=== PATIENT | male | born 1950 | race Caucasian/White ===

== ENCOUNTER → 2016-12-05 | Outpatient (CLI) | payer OTHER | LOC: BMCIMAGING 08:06 | PROVIDERS: ATTEND Internal Medicine | DX: R91.8 Other nonspecific abnormal finding of lung field (principal) ==

== ENCOUNTER 2016-12-12 08:53 | Emergency (ER) | payer OTHER ==
--- NOTE | 2016-12-12 08:55 | EDPHY ---
HPI/HX/ROS/PE/MDM Narrative: CHIEF COMPLAINT: Left flank pain. HPI: The patient is a 66-year-old male who presents with sudden onset sharp left flank pain for 2 hours. The pain has been constant since then. He admits associated diaphoresis and tenesmus. He has had one bout of emesis. He denies provoking factors. He felt fine yesterday. EMS administered 10mg IV Morphine and 4mg IV Zofran en route. REVIEW OF SYSTEMS: Aside from elements discussed in the HPI, a comprehensive 10-point review of systems was reviewed and is negative. PMH: Hypercholesterolemia, 5 hernia repairs. SOCIAL HISTORY: . PHYSICAL EXAM: General: Patient is alert, in no acute distress. ENT: Eyes are normal to inspection. ENT inspection normal. Neck: Normal inspection. Full range of motion. Respiratory: No respiratory distress. Breath sounds normal bilaterally. Cardiovascular: Regular rate and rhythm. Strong peripheral pulses. Abdomen: Tenderness lateral to LLQ. There are no peritoneal signs. There are normal bowel sounds. Back: Normal to inspection. No tenderness to palpation. Skin: Normal color. No rash. Warm and dry. Extremities: Normal appearance. Full range of motion. Neuro: Oriented x3. Normal motor function. Normal sensory function. Portions of this note were transcribed by an ED scribe. I personally performed the history, physical exam, and medical decision making; and confirm the accuracy of the information in the transcribed note. ED Course: I met EMS on arrival and obtained a report from the license distributor. 66-year-old male presents with sudden-onset sharp left flank pain. This pain does not radiate. He denies alleviating or provoking factors. On exam he is tender lateral to his LLQ. An IV was established and labs ordered. 1L IV saline, 4mg IV Zofran, and 30mg IV Toradol administered. Abdominal CT ordered. 1004: Consulted with Dr. Orosco, radiology. He reports a 3mm distal left ureter stone. Please see Imaging section for official report. I discussed these results with the patient at this time. He is comfortable being discharged. He understands to follow up with a urologist and has been given a referral to Dr. Bueno. 1100: Upon being discharged the patient's pain returned so he was placed back in his room. 1mg IV Dilaudid and 4mg IV Zofran administered. 1356: Reassessed patient. He is feeling better. We discussed admission. We will re-check him in an hour and if his pain has returned, he will be admitted. MDM: This patient presents with abdominal pain and is found to have a 3 mm stone in the distal left ureter which is consistent with his symptoms. Patient shows no sign of urinary tract infection, sepsis, ruptured AAA, herniated disc or diverticulitis. He is appropriate for outpatient management. - Data Points Imaging Results: Imaging Impressions Abdomen/Pelvis CT 12/12/16 08:57 Impression: 1. 3 mm distal left ureteral stone with mild obstructive uropathy and possible forniceal rupture. 2. Coronary artery atherosclerosis. 3. Stable pulmonary nodules measuring up to 1 cm. Follow up chest CT is recommended in 6-12 months. 4. Sigmoid diverticulosis without evidence of diverticulitis. 5. Additional findings as above. Findings discussed with Mark Mansfield M.D. on December 12, 2016 at 10:04 a.m. Attention: This CT examination is specifically designed to evaluate patients who are clinically suspected of having acute obstructive uropathy. This examination does not use radiographic contrast, and as such, provides only a limited evaluation of the abdomen, pelvis and retroperitoneum. If there is further clinical suspicion for pathological conditions other than obstructive uropathy, a complete CT evaluation of the abdomen and pelvis utilizing intravenous and oral contrast should be considered. Laboratory Results: Laboratory Results 12/12/16 09:00 12/12/16 09:00 12/12/16 12/12/16 09:00 09:00 WBC 7.03 10^3/uL 10^3/uL (3.80-9.50) RBC 5.69 10^6/uL 10^6/uL (4.40-6.38) Hgb 15.6 g/dL g/dL (13.7-17.5) Hct 47.7 % % (40.0-51.0) MCV 83.8 fL fL (81.5-99.8) MCH 27.4 pg L pg (27.9-34.1) MCHC 32.7 g/dL g/dL (32.4-36.7) RDW 13.1 % % (11.5-15.2) Plt Count 281 10^3/uL 10^3/uL (150-400) MPV 10.9 fL fL (8.7-11.7) Neut % (Auto) 46.7 % % (39.3-74.2) Lymph % (Auto) 42.2 % % (15.0-45.0) [place] % (Auto) 7.7 % % (4.5-13.0) Eos % (Auto) 1.8 % % (0.6-7.6) Baso % (Auto) 1.3 % % (0.3-1.7) Nucleat RBC Rel Count 0.0 % % (0.0-0.2) Absolute Neuts (auto) 3.28 10^3/uL 10^3/uL (1.70-6.50) Absolute Lymphs (auto) 2.97 10^3/uL 10^3/uL (1.00-3.00) Absolute Monos (auto) 0.54 10^3/uL 10^3/uL (0.30-0.80) Absolute Eos (auto) 0.13 10^3/uL 10^3/uL (0.03-0.40) Absolute Basos (auto) 0.09 10^3/uL 10^3/uL (0.02-0.10) Absolute Nucleated RBC 0.00 10^3/uL 10^3/uL (0-0.01) Immature Gran % 0.3 % % (0.0-1.1) Immature Gran # 0.02 10^3/uL 10^3/uL (0.00-0.10) Sodium 140 mEq/L mEq/L (134-144) Potassium 4.3 mEq/L mEq/L (3.5-5.2) Chloride 107 mEq/L mEq/L (97-110) Carbon Dioxide 17 mEq/l L mEq/l (22-31) Anion Gap 16 mEq/L mEq/L (8-16) BUN 26 mg/dL H mg/dL (7-23) Creatinine 1.1 mg/dL mg/dL (0.7-1.3) Estimated GFR > 60 Glucose 155 mg/dL H mg/dL (70-100) Calcium 10.0 mg/dL mg/dL (8.5-10.4) Medications Given: Discontinued Medications Hydromorphone HCl (Dilaudid) 1 mg IVP EDNOW ONE Stop: 12/12/16 10:44 Last Admin: 12/12/16 10:53 Dose: 1 mg Hydromorphone HCl (Dilaudid) 0.5 mg IVP EDNOW ONE Stop: 12/12/16 12:06 Last Admin: 12/12/16 12:38 Dose: 0.5 mg Sodium Chloride (Ns) 1,000 mls @ 0 mls/hr IV ONCE ONE PRN Reason: Wide Open Stop: 12/12/16 08:57 Last Admin: 12/12/16 09:08 Dose: 1,000 mls Sodium Chloride (Ns) 1,000 mls @ 0 mls/hr IV ONCE ONE PRN Reason: Wide Open Stop: 12/12/16 10:44 Last Admin: 12/12/16 10:53 Dose: 1,000 mls Ibuprofen (Motrin) 600 mg PO EDNOW ONE Stop: 12/12/16 12:06 Last Admin: 12/12/16 12:15 Dose: 600 mg Ketorolac Tromethamine (Toradol) 30 mg IVP EDNOW ONE Stop: 12/12/16 08:57 Last Admin: 12/12/16 09:08 Dose: 30 mg Ondansetron HCl (Zofran) 4 mg IVP EDNOW ONE Stop: 12/12/16 09:15 Last Admin: 12/12/16 09:20 Dose: 4 mg Ondansetron HCl (Zofran) 4 mg IVP EDNOW ONE Stop: 12/12/16 10:55 Last Admin: 12/12/16 11:09 Dose: 4 mg General Initial Vital Signs: Initial Vital Signs Temperature (C) 36.8 C 12/12/16 08:53 Heart Rate 55 L 12/12/16 08:53 Respiratory Rate 18 12/12/16 08:53 Blood Pressure 162/94 H 12/12/16 08:53 O2 Sat (%) 98 12/12/16 08:53 O2 Delivery Mode Room Air O2 (L/minute) 2 Allergies/Adverse Reactions: No Known Allergies Allergy (Verified 12/12/16 10:30) Home Medications: Medication Instructions Recorded Atorvastatin Calcium 12/12/16 Ketorolac Tromethamine [Toradol] 10 mg PO Q6H #16 tab 12/12/16 Ondansetron Odt [Zofran Odt] 4 mg PO Q4PRN PRN #10 tab 12/12/16 oxyCODONE/APAP 5/325 [Percocet 1 - 2 tab PO Q4H PRN #10 tab 12/12/16 5/325] Departure - Departure Disposition: Home, Routine, Self-Care Clinical Impression: Kidney stone on left side Condition: Good Instructions: Kidney Stones (ED) Additional Instructions: Call Dr. Bueno, urology, today to set up a follow up appointment. Drink plenty of fluids. Return for any serious worsening of condition. Referrals: Adalberto Brink MD [Primary Care Provider] - As per Instructions Arsen Bueno MD [Medical Doctor] - As per Instructions Prescriptions: Ketorolac Tromethamine [Toradol] 10 mg PO Q6H #16 tab Ondansetron Odt [Zofran Odt] 4 mg PO Q4PRN PRN #10 tab PRN Reason: Nausea oxyCODONE/APAP 5/325 [Percocet 5/325] 1 - 2 tab PO Q4H PRN #10 tab PRN Reason: Pain, Severe Report Scribed for: Mark Mansfield Report Scribed by: Salas Coffey Date of Report: 12/12/16 Time of Report: 10:03
[2016-12-12] MEDS ORDERED: NS 1,000 ML IV ONE ×2 (08:56→10:43)
[2016-12-12] MEDS ORDERED: KETOROLAC 30 MG/1 ML SDV IVP ONE (08:56)
[2016-12-12 09:13] LABS: % IMMATURE GRANULYOCYTES 0.3 % (0.0-1.1); ABSOLUTE IMMATURE GRANULOCYTES 0.02 10^3/uL (0.00-0.10); ADD DIFF? NO; ADD MORPH? NO; ADD SCAN? NO; ATYPICAL LYMPHOCYTE FLAG 30 (0-99); FRAGMENT RBC FLAG 0 (0-99); HEMATOCRIT 47.7 % (40.0-51.0); HEMOGLOBIN 15.6 g/dL (13.7-17.5); LEFT SHIFT FLG 0 (0-99); LIPEMIA HEMOLYSIS FLAG 80 (0-99); MEAN CELL HEMOGLOBIN 27.4 pg (27.9-34.1); MEAN CELL HEMOGLOBIN CONCENTR. 32.7 g/dL (32.4-36.7); MEAN CELL VOLUME 83.8 fL (81.5-99.8); MEAN PLATELET VOLUME 10.9 fL (8.7-11.7); PLATELET CLUMPS FLAG 0 (0-99); PLATELET COUNT 281 10^3/uL (150-400); RED BLOOD CELL COUNT 5.69 10^6/uL (4.40-6.38); RED CELL DISTRIBUTION WIDTH 13.1 % (11.5-15.2)
[2016-12-12] MEDS ORDERED: ONDANSETRON 4 MG/2 ML VIAL IVP ONE ×2 (09:14→10:54)
[2016-12-12 09:26] LABS: ANION GAP 16 mEq/L (8-16); CARBON DIOXIDE 17 mEq/l (22-31); CHLORIDE 107 mEq/L (97-110); CREATININE 1.1 mg/dL (0.7-1.3); GLOMERULAR FILTRATION RATE > 60; GLUCOSE 155 mg/dL (70-100); POTASSIUM 4.3 mEq/L (3.5-5.2); SODIUM 140 mEq/L (134-144)
[2016-12-12] MEDS ORDERED: HYDROmorphONE/DILAUDID 1 MG/ML SYR IVP ONE ×2 (10:43→12:05)
[2016-12-12] MEDS ORDERED: HYDROmorphONE/DILAUDID 1 MG/ML SYR ONE (10:48)
[2016-12-12] MEDS ORDERED: ONDANSETRON 4 MG/2 ML VIAL ONE (10:58)
[2016-12-12] MEDS ORDERED: IBUPROFEN 600 MG TAB PO ONE (12:05)
[2016-12-12 12:07] VITALS: RESP 18
[2016-12-12 13:12] VITALS: O2SAT 95
[2016-12-12] MEDS ORDERED: OXYCODONE/APAP 5/325 TAB PO ONE (13:58)
[2016-12-12 15:08] VITALS: BP 135/85; PULSE 55; TEMP 98.2
== END 2016-12-12 15:12 | disposition home or self-care (01) ==
LOC: EDUNIT#
DX: N20.0 Calculus of kidney (principal)
CPT/HCPCS: 96374; J1170; J1885; J2405

== ENCOUNTER → 2017-06-26 | Outpatient (CLI) | payer OTHER | LOC: FIMAGING 07:49 | PROVIDERS: ATTEND Internal Medicine | DX: R91.1 Solitary pulmonary nodule (principal) ==

== ENCOUNTER → 2018-01-21 | Outpatient (CLI) | payer OTHER | LOC: FIMAGING 14:19 | PROVIDERS: ATTEND Internal Medicine | DX: R91.1 Solitary pulmonary nodule (principal); I25.10 Atherosclerotic heart disease of native coronary artery without angina pectoris ==

== ENCOUNTER 2018-08-13 05:11 | Inpatient (IN) | payer OTHER ==
--- NOTE | 2018-08-13 05:20 | EDPHY ---
H & P Stated Complaint: worsening L hip pain, similar to fluid on R hip,orthopedist considering MRI Time Seen by Provider: 08/13/18 05:20 HPI/ROS: HPI CHIEF COMPLAINT: Intractable left hip pain getting worse. HISTORY OF PRESENT ILLNESS: Patient is a very pleasant 68-year-old male, otherwise healthy does have a history of hyperlipidemia presents to the emergency room with left hip pain. Patient has been suffering from left hip pain for the past 2 weeks. Progressively getting worse over the past week. He has been using crutches to get around. He is having increasing pain. He did see his orthopedic surgeon Dr. Mg. He had x-rays of his left hip and back and they were unsure exactly what causing his hip pain. He also had a cortisone injection in his hip he states that gave him no relief this was last week. Additionally he reports the fluid drawn off and fluid drawn off he did feel better. He is unsure of the fluid results. Patient reports to me he really cannot bear any weight. The patient denies fever, denies trauma to his left hip her back. The pain is rather intense 9/10 lateral left hip pain. Worse when he goes to walk a ranges left hip. Denies any fever, skin discoloration. Denies trauma. Patient's orthopedic surgeon is Dr. Mg. Past Medical History: Hyperlipidemia Past Surgical History: Right hip replacement. Social History: Denies drugs alcohol tobacco. Family History: Noncontributory ROS REVIEW OF SYSTEMS: 10 Systems were reviewed and negative with the exception of the elements mentioned in the history of present illness. Exam Constitutional triage nursing summary reviewed, vital signs reviewed, awake/ alert. Eyes normal conjunctivae and sclera, EOMI, PERRLA. HENT normal inspection, atraumatic, moist mucus membranes, no epistaxis, neck supple/ no meningismus, no raccoon eyes. Respiratory clear to auscultation bilaterally, normal breath sounds, no respiratory distress, no wheezing. Cardiovascular rate normal, regular rhythm, no murmur, no edema, distal pulses normal. Gastrointestinal soft, non-tender, no rebound, no guarding, normal bowel sounds, no distension, no pulsatile mass. Genitourinary no CVA tenderness. Musculoskeletal left lower extremity neurovascular intact with good distal pulse, good cap refill, warm extremity, no skin discoloration, tender palpation over the left lateral hip with deep palpation, with range of motion of the left hip including flexion, extension he has discomfort. no midline vertebral tenderness, full range of motion, no calf swelling, no tenderness of extremities, no meningismus, good pulses, neurovascularly intact. Skin pink, warm, & dry, no rash, skin atraumatic. Neurologic awake, alert and oriented x 3, AAOx3, moves all 4 extremities equally, motor intact, sensory intact, CN II-XII intact, normal cerebellar, normal vision, normal speech. Psychiatric normal mood/affect. Heme/Lymph/Immune no lymphadenopathy. Differential Diagnosis: Includes but is not limited to in a particular order left hip sprain, left hip contusion, left hip osteoarthritis, septic hip. Medical Decision Making: Plan for this patient IV establishment with IV pain control 1 mg IV Dilaudid for pain, Zofran 4 mg for nausea, basic blood work, x- ray left hip, MRI left hip. Re-evaluate. Re-evaluation: 6:19 a.m. patient is given 1 mg IV Dilaudid and pain improved. Blood work pending. X-ray performed a left hip interpreted by myself significant osteoarthritis and joint space narrowing. No fracture. MRI ordered of the patient's left hip. 0649: Spoke with Dr. Mg's PA Juan Francisco Simms, will talk to Dr. Mg. And either Dr. Mg or Dr. Wilde will come and see him. Plan for admission to the hospitalist service Dr. Vaughan. Patient in MRI at this time 6:52 a.m.. Patient to be admitted to the medicine service for pain control, Orthopedics to see the patient Source: Patient - Personal History Current Tetanus/Diphtheria Vaccine: Yes Current Tetanus Diphtheria and Acellular Pertussis (TDAP): Yes - Medical/Surgical History Hx Asthma: No Hx Chronic Respiratory Disease: No Hx Diabetes: No Hx Cardiac Disease: No Hx Renal Disease: No Hx Cirrhosis: No Hx Alcoholism: No Hx HIV/AIDS: No Hx Splenectomy or Spleen Trauma: No Other PMH: HLP, hernia surgery x5 - Social History Smoking Status: Former smoker Constitutional: Initial Vital Signs Temperature (C) 36.3 C 08/13/18 05:15 Heart Rate 63 08/13/18 05:15 Respiratory Rate 20 08/13/18 05:15 Blood Pressure 126/102 H 08/13/18 05:15 O2 Sat (%) 98 08/13/18 05:15 O2 (L/minute) 2 Allergies/Adverse Reactions: No Known Allergies Allergy (Verified 08/13/18 05:14) Home Medications: Medication Instructions Recorded Atorvastatin Calcium [Lipitor 20 20 mg PO DAILY 12/12/16 mg (*)] Ascorbic Acid [Vitamin C 500 mg 500 mg PO DAILY 08/13/18 (*)] Cholecalciferol Vit D3 [Vitamin D3 1,000 units PO DAILY 08/13/18 (*)] Cyanocobalamin [Vitamin B12 (*)] 1,000 mcg PO DAILY 08/13/18 Glucosamine/Chondroitin 1 each PO DAILY 08/13/18 [Glucosamine/Chondroitin (*)] Naproxen Sodium [Aleve 220 MG (*)] 220 mg PO DAILY 08/13/18 [place]-3 Fatty Acids [Fish Oil 1000 1,000 mg PO DAILY 08/13/18 mg (*)] celeCOXIB [Celebrex (*)] 200 mg PO HS 08/13/18 Medical Decision Making - Data Points Laboratory Results: Laboratory Results 08/13/18 05:51 08/13/18 05:51 Medications Given: Hydrocodone Bitart/Acetaminophen ([place] 5/325) 1 - 2 tab PO Q4HRS PRN PRN Reason: Pain, Moderate Able to Take PO Stop: 08/23/18 06:39 Last Admin: 08/13/18 20:26 Dose: 1 tab Sodium Chloride (Ns) 1,000 mls @ 75 mls/hr IV CONT RAMIRO Stop: 02/09/19 06:44 Last Admin: 08/13/18 08:52 Dose: 1,000 mls Lorazepam (Ativan) 0.5 - 1 mg PO Q8HRS PRN PRN Reason: Anxiety, Able to Take PO Stop: 02/09/19 06:39 Last Admin: 08/13/18 22:08 Dose: 1 mg Discontinued Medications Fentanyl (Sublimaze) 50 mcg IVP EDNOW ONE Stop: 08/13/18 06:27 Last Admin: 08/13/18 06:41 Dose: 50 mcg Hydromorphone HCl (Dilaudid) 1 mg IVP EDNOW ONE Stop: 08/13/18 05:45 Last Admin: 08/13/18 06:09 Dose: 1 mg Sodium Chloride (Ns) 1,000 mls @ 0 mls/hr IV ONCE ONE PRN Reason: Wide Open Stop: 08/13/18 05:45 Last Admin: 08/13/18 06:09 Dose: 1,000 mls Ondansetron HCl (Zofran) 4 mg IVP EDNOW ONE Stop: 08/13/18 05:45 Last Admin: 08/13/18 06:09 Dose: 4 mg Departure - Departure Disposition: [facility] Clinical Impression: Left hip pain Condition: Good
[2018-08-13] MEDS ORDERED: NS 1,000 ML IV ONE (05:44)
[2018-08-13] MEDS ORDERED: ONDANSETRON 4 MG/2 ML VIAL IVP ONE (05:44)
[2018-08-13] MEDS ORDERED: HYDROmorphONE/DILAUDID 2 MG/ML INJ IVP ONE (05:44)
[2018-08-13] MEDS ORDERED: GADOBUTROL 10 ML VIAL IVP ONE (06:06)
[2018-08-13 06:18] LABS: PLATELET COUNT 268 10^3/uL (150-400)
[2018-08-13] MEDS ORDERED: fentaNYL 100 MCG/2 ML INJ IVP ONE (06:26)
[2018-08-13] MEDS ORDERED: LORazepam 2 MG/ML INJ IVP PRN (06:40)
[2018-08-13] MEDS ORDERED: ACETAMINOPHEN 325 MG TAB PO PRN (06:40)
[2018-08-13] MEDS ORDERED: ONDANSETRON DISINTEGRATING 4 MG TAB PO PRN (06:40)
[2018-08-13] MEDS ORDERED: ONDANSETRON 4 MG/2 ML VIAL IVP PRN (06:40)
[2018-08-13] MEDS: NS 1,000 ML IV SCH (08:52)
[2018-08-13] MEDS: HYDROCODONE/APAP 5/325 TAB PO PRN ×3 (11:01→20:26)
--- NOTE | 2018-08-13 15:54 | GCON ---
ORTHOPEDIC CONSULTATION DATE OF CONSULTATION: 08/13/2018 CHIEF COMPLAINT: Left lower extremity pain. HISTORY OF PRESENT ILLNESS: This is a patient with known left hip osteoarthritis and patient of Dr. Mg and . He has known left hip osteoarthritis, had an intra-articular steroid inject ion performed on August 04, along with fluid aspiration. States that he got approximately 12 hour s of pain relief after that; however, pain has been worsening since that time. He states the last we ek and a half, he has been living with 18 hours of 7 or greater out of 10 pain. He had difficulty we ightbearing yesterday and presented to the emergency department. He denies fevers, chills, change in bowel or bladder habits, including controlling or initiating. He states the pain is located mostly in the posterior lateral buttock, radiates down the all aspects of the thigh, posterior lateral and t o a lesser degree in the quadriceps, radiates down the lateral aspect of the leg, which is associated with some numbness; however, no symptoms radiate past the ankle into the foot. He states the sympto ms feel much different compared to the symptoms that led to his right hip replacement. Currently, he has been getting pain medication and feels "great." REVIEW OF SYSTEMS: 10-point review of systems is negative, except for what is noted in the HPI. PAST MEDICAL HISTORY: Hyperlipidemia. PAST SURGICAL HISTORY: Right hip replacement. SOCIAL HISTORY: Denies drugs, alcohol, or tobacco. FAMILY HISTORY: Noncontributory. LABORATORY/IMAGING: Inflammatory blood work, including a CBC, ESR, and CRP are not concerning for in fection. MRI and x-rays of the hip reveal known osteoarthritis. ASSESSMENT/PLAN: 68-year-old male with intractable left lower extremity pain, not currently concerni ng for septic arthritis of the left hip or cauda equina; however, patient's left hip osteoarthritis w ould be unusual for it to produce as much pain as the patient is having. Recommend an MRI of the pat ient's lumbar spine and consider further intervention afterwards. The patient and family members und erstand and agree with treatment plan. Questions were answered. /[id number]/MODL
--- NOTE | 2018-08-13 17:43 | PDGENHP ---
History and Physical - Chief Complaint hip and back pain - History of Present Illness 68 year old male with pmh of OA and HLD who presented to the Er with complaints of acute worsening of his left hip. he states that he had a hip joint injection on August 04 which helped only briefly. Then his pain acutely worsened. Since that time he has had severe 8/10 pain in his left hip which radiates down the back of his leg. He does not have any loss of bowel or bladder, and denied any numbness or saddle anesthesia. He takes aleve which has not really helped at all. The pain is present all the time and is not worse with any weight bearing. History Information - Allergies/Home Medication List Allergies/Adverse Reactions: No Known Allergies Allergy (Verified 08/13/18 05:14) Home Medications: Atorvastatin Calcium [Lipitor 20 mg (*)] 20 mg PO DAILY 12/12/16 [Last Taken 08/18] Ascorbic Acid [Vitamin C 500 mg (*)] 500 mg PO DAILY 08/13/18 [Last Taken Unknown] Cholecalciferol Vit D3 [Vitamin D3 (*)] 1,000 units PO DAILY 08/13/18 [Last Taken Unknown] Cyanocobalamin [Vitamin B12 (*)] 1,000 mcg PO DAILY 08/13/18 [Last Taken Unknown ] Glucosamine/Chondroitin [Glucosamine/Chondroitin (*)] 1 each PO DAILY 08/13/18 [ Last Taken Unknown] Naproxen Sodium [Aleve 220 MG (*)] 220 mg PO DAILY 08/13/18 [Last Taken 08/12/18 ] [place]-3 Fatty Acids [Fish Oil 1000 mg (*)] 1,000 mg PO DAILY 08/13/18 [Last Taken Unknown] celeCOXIB [Celebrex (*)] 200 mg PO HS 08/13/18 [Last Taken 08/12/18] I have personally reviewed and updated: family history, medical history, social history, surgical history (hld) - Past Medical History hyperlipidemia - Surgical History Additional surgical history: right hip arthroplasty - Family History Positive for: non-pertinent - Social History Smoking Status: Former smoker Drug Use: Marijuana Review of Systems Review of Systems: ROS: 10pt was reviewed & negative except for what was stated in HPI & below Physical Exam Physical Exam: Temp Pulse Resp BP Pulse Ox 37.3 C 56 L 16 133/80 H 97 08/13/18 15:43 08/13/18 15:43 08/13/18 15:43 08/13/18 15:43 08/13/18 15:43 O2 (L/minute) 2 Constitutional: no apparent distress, appears nourished, not in pain Eyes: PERRL, anicteric sclera, EOMI Ears, Nose, Mouth, Throat: moist mucous membranes, hearing normal, ears appear normal, no oral mucosal ulcers Cardiovascular: regular rate and rhythym, no murmur, rub, or gallop, No edema Respiratory: no respiratory distress, no rales or rhonchi, clear to auscultation Gastrointestinal: normoactive bowel sounds, soft, non-tender abdomen, no palpable masses Genitourinary: no bladder fullness, no bladder tenderness Skin: warm, normal color, no rashes or abrasions, no fluctuance, no induration, No mottled Musculoskeletal: full muscle strength, no muscle tenderness, normal joint ROM, no joint effusions Neurologic: AAOx3, CN II-XII Intact Psychiatric: interacting appropriately, not anxious, not encephalopathic, thought process linear Lymph, Heme, Immunologic: no cervical LAD, no supraclavicular LAD Lab Data & Imaging Review 08/13/18 05:51 08/13/18 05:51 WBC 9.17 10^3/uL (3.80-9.50) 08/13/18 05:51 RBC 5.81 10^6/uL (4.40-6.38) 08/13/18 05:51 Hgb 15.9 g/dL (13.7-17.5) 08/13/18 05:51 Hct 47.5 % (40.0-51.0) 08/13/18 05:51 MCV 81.8 fL (81.5-99.8) 08/13/18 05:51 MCH 27.4 pg (27.9-34.1) L 08/13/18 05:51 MCHC 33.5 g/dL (32.4-36.7) 08/13/18 05:51 RDW 12.9 % (11.5-15.2) 08/13/18 05:51 Plt Count 268 10^3/uL (150-400) 08/13/18 05:51 MPV 10.2 fL (8.7-11.7) 08/13/18 05:51 Neut % (Auto) 60.1 % (39.3-74.2) 08/13/18 05:51 Lymph % (Auto) 28.9 % (15.0-45.0) 08/13/18 05:51 [place] % (Auto) 8.6 % (4.5-13.0) 08/13/18 05:51 Eos % (Auto) 1.6 % (0.6-7.6) 08/13/18 05:51 Baso % (Auto) 0.5 % (0.3-1.7) 08/13/18 05:51 Nucleat RBC Rel Count 0.0 % (0.0-0.2) 08/13/18 05:51 Absolute Neuts (auto) 5.50 10^3/uL (1.70-6.50) 08/13/18 05:51 Absolute Lymphs (auto) 2.65 10^3/uL (1.00-3.00) 08/13/18 05:51 Absolute Monos (auto) 0.79 10^3/uL (0.30-0.80) 08/13/18 05:51 Absolute Eos (auto) 0.15 10^3/uL (0.03-0.40) 08/13/18 05:51 Absolute Basos (auto) 0.05 10^3/uL (0.02-0.10) 08/13/18 05:51 Absolute Nucleated RBC 0.00 10^3/uL (0-0.01) 08/13/18 05:51 Immature Gran % 0.3 % (0.0-1.1) 08/13/18 05:51 Immature Gran # 0.03 10^3/uL (0.00-0.10) 08/13/18 05:51 ESR 24 MM/HR (0-20) H 08/13/18 05:51 VBG Lactic Acid 1.4 mmol/L (0.7-2.1) 08/13/18 06:15 Sodium 137 mEq/L (135-145) 08/13/18 05:51 Potassium 4.1 mEq/L (3.5-5.2) 08/13/18 05:51 Chloride 109 mEq/L (97-110) 08/13/18 05:51 Carbon Dioxide 21 mEq/l (22-31) L 08/13/18 05:51 Anion Gap 7 mEq/L (6-14) 08/13/18 05:51 BUN 24 mg/dL (7-23) H 08/13/18 05:51 Creatinine 0.8 mg/dL (0.7-1.3) 08/13/18 05:51 Estimated GFR > 60 08/13/18 05:51 Glucose 110 mg/dL (70-100) H 08/13/18 05:51 Calcium 9.9 mg/dL (8.5-10.4) 08/13/18 05:51 C-Reactive Protein < 5.0 mg/L (<10.0) 08/13/18 05:51 Visualized and Interpreted imaging results: Yes Assessment & Plan Assessment: Left hip pain (Acute)- orthopedic surgery has been consulted. MRI reviewed and I find no evidence of infection but he does have a labral tear, along with arthritis. his labs are unremarkable and exam and vitals are all reasuring. -ortho to see -pain control -NPO until cleared -IVNS HLD- can continue statin while here. PPX- SCDs, heparin if no surgery Fluids- NS Lytes- WNL Nutrition- NPO at [place] [facility]- Full Dispo- observation for acute left hip pain
[2018-08-13] MEDS: LORazepam 0.5 MG TAB PO PRN (22:08)
[2018-08-14] MEDS: HYDROCODONE/APAP 5/325 TAB PO PRN ×3 (03:37→21:09)
[2018-08-14] MEDS: NS 1,000 ML IV SCH (05:38)
--- NOTE | 2018-08-14 06:24 | GCON ---
I was asked to see and evaluated this patient by my colleague, Dr. Praveen Mg. This is actually a patient who is well known to me for a previous visit, we thought at the time was likely left hip pain. He has been referred to my clinic from Dr. Troy Wilde for consideration of an injection, but his pain was refractory to that. He presented to the hospital yesterday with severe left leg pain. PHYSICAL EXAMINATION: On my physical exam, when I 1st spoke to the patient this morning, he stated "my left hip feels a lot like my right hip did before I had the hip replacement", however, he also describes a unique pain which radiates down the right leg, posterolateral thigh into the anterolateral ren which seems neurological or radicular in nature. On physical exam this morning, his tibialis anterior was 4- out of 5 in the left , EHL was also 4- out of 5. Straight leg raise was markedly positive. At the time, I made recommendations for lumbar spine MRI which has since been obtained. The MRI demonstrates a cephalad migration of an L4-5 herniated nucleus pulposis on the patient's left side. There is no evidence of instability. IMPRESSION: L4-5 herniated nucleus pulposis. ASSESSMENT AND PLAN: From my perspective, given the substantial weakness with this patient, I do think it is reasonable for operative interventions. I did however go over all management possibilities including all conservative measures , watching and waiting, medical management, epidural injection, etc. I also spoke to the patient's lefabun-ns-gys who is a neurosurgeon in [place]. The patient, the patient's [id number] as well as his all agree that operative management is likely the best scenario moving forward, especially given the rather severe weakness on that left leg. I went over risks, benefits , and alternatives of a micro disk at this level. The patient expressed understanding. These risks include, but are not limited to , paralysis, nerve damage, failure of surgery to alleviate preoperative symptoms or reherniation, infection, instability requiring fusion, reherniation, dural tear , etc. I will move forward with this operation tomorrow. At this time, I have discussed with the operating room, and they would like to perform this case at the end of their line tomorrow, which will probably around 5 p.m. Just in case , I think it is safe to make the patient n.p.o. after midnight and begin some IV fluid. All questions were answered at this time. The patient has my cell phone and is welcome to contact me if he has any further questions. Otherwise, we will see him in the operating room tomorrow. /[id number]/MODL MTDD
[2018-08-14] MEDS: ATORVASTATIN CALCIUM 20 MG TAB PO SCH (08:13)
[2018-08-14] MEDS ORDERED: LR 1,000 ML IV ONE (12:22)
[2018-08-14] MEDS ORDERED: ceFAZolin 2 GM/DEXTROSE 100 ML IV ONE (13:00)
[2018-08-14] MEDS ORDERED: TRANEXAMIC ACID 1,000 MG in NS 100 ML IV ONE (13:00)
[2018-08-14] MEDS ORDERED: fentaNYL 100 MCG/2 ML INJ ONE ×3 (13:01→18:23)
[2018-08-14] MEDS: fentaNYL 100 MCG/2 ML INJ IVP PRN ×2 (13:10→14:02)
[2018-08-14] MEDS ORDERED: SURGIFLO MATRIX KIT WITH THROMBIN 8 ML TP ONE ×2 (13:14→17:05)
[2018-08-14] MEDS ORDERED: BUPIVACAINE/EPI 0.5% 30 ML SDV ONE ×2 (13:14→17:05)
[2018-08-14] MEDS ORDERED: BACITRACIN 50,000 UNITS/10 ML SYR IRR ONE ×2 (13:15→17:05)
[2018-08-14] MEDS ORDERED: VANCOMYCIN 1 GM VIAL ONE ×2 (13:15→17:05)
--- NOTE | 2018-08-14 16:07 | ASMTCMCOM ---
CM Note CM Note Notes: Pt is a 68 yo M presented with herniated nucleus pulposis. Pt lives with his and is supportive. Pt has no previous admissions. Pt is scheduled for surgery tomorrow. CM to follow. Plan: TBD Date Signed: 08/14/2018 04:06 PM Electronically Signed By:MARCIA Fournier
--- NOTE | 2018-08-14 17:03 | PDANEPAE ---
ANE Past Medical History - Pulmonary History Hx Oxygen in Use at Home: No Hx Sleep Apnea: No Sleep Apnea Screening Result - Last Documented: Negative - Endocrine History Hx Diabetes: No - Chronic Pain History Chronic Pain: No ANE Review of Systems Review of Systems: ANE Patient History - Allergies Allergies/Adverse Reactions: No Known Allergies Allergy (Verified 08/13/18 05:14) - Home Medications Home Medications: Atorvastatin Calcium [Lipitor 20 mg (*)] 20 mg PO DAILY 12/12/16 [Last Taken 08/18] Ascorbic Acid [Vitamin C 500 mg (*)] 500 mg PO DAILY 08/13/18 [Last Taken Unknown] Cholecalciferol Vit D3 [Vitamin D3 (*)] 1,000 units PO DAILY 08/13/18 [Last Taken Unknown] Cyanocobalamin [Vitamin B12 (*)] 1,000 mcg PO DAILY 08/13/18 [Last Taken Unknown ] Glucosamine/Chondroitin [Glucosamine/Chondroitin (*)] 1 each PO DAILY 08/13/18 [ Last Taken Unknown] Naproxen Sodium [Aleve 220 MG (*)] 220 mg PO DAILY 08/13/18 [Last Taken 08/12/18 ] [place]-3 Fatty Acids [Fish Oil 1000 mg (*)] 1,000 mg PO DAILY 08/13/18 [Last Taken Unknown] celeCOXIB [Celebrex (*)] 200 mg PO HS 08/13/18 [Last Taken 08/12/18] - NPO status NPO Since - Liquids (Date): 08/14/18 NPO Since - Liquids (Time): 00:00 NPO Since - Solids (Date): 08/14/18 NPO Since - Solids (Time): 00:00 - Smoking Hx Smoking Status: Former smoker ANE Labs/Vital Signs - Labs Result Diagrams: 08/13/18 05:51 08/13/18 05:51 - Vital Signs Blood Pressure: 141/89 Heart Rate: 51 Respiratory Rate: 16 O2 Sat (%): 98 Height: 175.26 cm Weight: 86.183 kg ANE Physical Exam - Airway Mallampati Score: Class 2 - ASA Status ASA Status: II ANE Anesthesia Plan Anesthesia Plan: general endotracheal anesthesia
[2018-08-14] MEDS ORDERED: VANCOMYCIN 500 MG/10 ML VIAL IV ONE (17:09)
[2018-08-14] MEDS ORDERED: MIDAZOLAM 2 MG/2 ML VIAL ONE (17:09)
[2018-08-14] MEDS ORDERED: PROPOFOL 200 MG/20 ML VIAL ONE (17:10)
[2018-08-14] MEDS ORDERED: PROPOFOL/EMULSION 500 MG/50 ML BOTTLE IV ONE (17:10)
[2018-08-14] MEDS ORDERED: METOCLOPRAMIDE 10 MG/2 ML VIAL ONE (17:35)
[2018-08-14] MEDS ORDERED: ONDANSETRON 4 MG/2 ML VIAL ONE (17:35)
[2018-08-14] MEDS ORDERED: LABETALOL HCL 5 MG/ML 20 ML MDV ONE (17:35)
[2018-08-14] MEDS ORDERED: ROCURONIUM 50 MG/5 ML VIAL ONE (17:35)
--- NOTE | 2018-08-14 18:27 | HOSPPROG ---
Hospitalist Progress Note Assessment/Plan: Left hip pain (Acute)- orthopedic surgery has been consulted. MRI reviewed and I find no evidence of infection but he does have a labral tear, along with arthritis. his labs are unremarkable and exam and vitals are all reasuring. after review it is thought this pain is actually secondary to L4-5 herniated disc and patient is scheduled for surgery today. -surgery today for herniated disc -operative care per surgery -pain control -IVNS HLD- can continue statin while here. PPX- SCDs, heparin if no surgery Fluids- NS Lytes- WNL Nutrition- NPO at [place] [facility]- Full Dispo- observation for acute left hip pain Subjective: pain controlled on medications. No other complaints. Objective: Vital Signs Temp Pulse Resp BP Pulse Ox 36.7 C 51 L 16 141/89 H 98 08/14/18 11:42 08/14/18 17:03 08/14/18 17:03 08/14/18 17:03 08/14/18 17:03 08/13/18 08/14/18 08/15/18 05:59 05:59 05:59 Intake Total 2960 Output Total 1250 625 Balance 1710 -625 - Physical Exam Constitutional: no apparent distress, appears nourished, not in pain Eyes: PERRL, anicteric sclera, EOMI Ears, Nose, Mouth, Throat: moist mucous membranes, hearing normal, ears appear normal, no oral mucosal ulcers Cardiovascular: regular rate and rhythym, no murmur, rub, or gallop Respiratory: no respiratory distress, no rales or rhonchi, clear to auscultation Gastrointestinal: normoactive bowel sounds, soft, non-tender abdomen, no palpable masses Genitourinary: no bladder fullness, no bladder tenderness, no renal bruits Skin: no rashes or abrasions, no fluctuance, no induration Musculoskeletal: full muscle strength, no muscle tenderness, normal joint ROM Neurologic: AAOx3, sensation intact bilaterally Psychiatric: interacting appropriately, not anxious, not encephalopathic, thought process linear Lymph, Heme, Immunologic: no cervical LAD, no supraclavicular LAD ICD10 Worksheet Patient Problems: Problems Problem Status Onset Left hip pain Acute
[2018-08-14] MEDS ORDERED: PROMETHAZINE HCL 25 MG/ML INJ IVP PRN (18:44)
[2018-08-14] MEDS ORDERED: MEPERIDINE 25 MG/0.5 ML AMP IVP PRN (18:44)
[2018-08-14] MEDS ORDERED: NALOXONE HCL 0.4 MG/ML INJ IVP PRN (18:44)
[2018-08-14] MEDS ORDERED: fentaNYL 100 MCG/2 ML INJ IVP PRN (18:44)
[2018-08-14] MEDS ORDERED: LR 500 ML IV PRN (18:44)
--- NOTE | 2018-08-14 18:45 | POSTANESTH ---
Post Anesthetic Evaluation Cardiovascular Status: Similar to Pre-Op Cond Respiratory Status: Normal, Stable Level of Consciousness/Mental Status: Can Participate in Eval Pain Control: Adequate, Prn Tx Ordered Nausea/Vomiting Control: Adequate, Prn Tx Ordered Complications Possibly Related to Anesthesia: None Noted
[2018-08-14] MEDS: LORazepam 0.5 MG TAB PO PRN (21:48)
--- NOTE | 2018-08-15 06:33 | GOP ---
DATE OF OPERATION: SURGEON: Yrn Ruiz MD DUTY ENGINEER: Boaz Bynum, CSFA, LSA ANESTHESIA: General anesthesia. PREOPERATIVE DIAGNOSIS: Left L4-5 herniated nucleus polyposis. POSTOPERATIVE DIAGNOSIS: Left L4-5 epidural abscess. PROCEDURE PERFORMED: Left L4-5 epidural abscess evacuation, irrigation and debridement, placement of drain and antibiotics. FINDINGS: SPECIMENS: Cultures x3. ESTIMATED BLOOD LOSS: 5 cc. INDICATIONS: The patient is a 68-year-old gentleman, well known to me for left lower extremity pain as well as weakness for the last several months. He has been indicated for a left L4-5 microdiskecto my based on the imaging. He was taken to the operating room in stable condition. DESCRIPTION OF PROCEDURE: Approach: Using a minimally invasive approach to the spine, x-rays were ta tim with a spinal needle in the spine which demonstrated L4-5 localization. Everyone was in agreemen t on the procedure to be performed as well as the level where it was performed. Following surgical t jas-out, the skin was infiltrated with local anesthetic and epinephrine. Following serial dilation u p to an 18 mm tube, an 18 mm tube was then docked on the spine in line with the L4 disk level just ce phalad to it, consistent with preoperative imaging. Hemilaminotomy: At this time a hemilaminotomy of the left L4 vertebra was performed caudally. The la minotomy was then performed to completion. At this time, the dura was directly visualized. There wa s a large area of the dura which was clearly reactive to something around this. It was indurated, wh ite and no longer translucent. The dura was then swept aside to allow for visualization of the anulu s and disk. No extruded disk fragments were actually found, instead just lateral to the lateral rece ss, some liquid consistent with pus and purulence was then found. There was a caseating type granulo ma found here at this level. This was consistent with purulent infection. At this point, cultures w ere sent x3. The area was then copiously irrigated and debrided thoroughly over the next 20-30 minut es. Attention was then turned towards closure. A small drain was placed in the area here and local vanco mycin was administered as well. There was no evidence of purulence following the irrigation and debr idement. There were no neuro monitoring changes throughout the case. Closure was achieved using 2-0 Monocryl sutures for the dermal layer as well as a 4-0 barbed suture f or the skin layer. Glue was applied over top of the skin. A surgical dental assistant was necessary for the case. A surgical microscope was deemed necessary for case. Surgical plan: Moving forward this patient will be discussed with the medical service, and I feel taylor t empiric antibiotic administration is going to be in that plan. I would recommend that Infectious D isease be consulted. The patient was then transferred to the bed and transferred to the recovery room in stable condition. I was present for all critical portions of the procedure. I discussed the case with the patient's as well as the patient's [id number], per his request . I discussed the epidural abscess and will follow up with sharing of any additional medical informa tion the family would like to be shared. DRAINS: One. IMPLANTS: None. /[id number]/MODL
[2018-08-15] MEDS: HYDROCODONE/APAP 5/325 TAB PO PRN ×3 (07:52→21:29)
[2018-08-15] MEDS: ATORVASTATIN CALCIUM 20 MG TAB PO SCH (08:25)
[2018-08-15] MEDS ORDERED: MAGNESIUM HYDROXIDE 30 ML UDCUP PO PRN (09:48)
[2018-08-15] MEDS ORDERED: LACTULOSE 20 GM/30 ML UDCUP PO PRN (09:48)
[2018-08-15] MEDS ORDERED: POLYETHYLENE GLYCOL 3350 17 GM PKT PO PRN (09:48)
[2018-08-15] MEDS ORDERED: BISACODYL 10 MG SUPP PR PRN (09:48)
--- NOTE | 2018-08-15 12:17 | PDMN ---
Medical Necessity Medical necessity: Pt meets INPT criteria per MD as of 08/15/18 and Neurosurgery [facility] (LOS >2 MN for ongoing eval/mgmt s/p epidural abscess evacuation, I&D, placement of drain; requiring IVABx).
[2018-08-15] MEDS ORDERED: ALTEPLASE 2 MG VIAL IVP PRN (13:33)
--- NOTE | 2018-08-15 14:09 | GCON ---
PHYSICIAN REQUESTING CONSULTATION: Akira Higuera MD REASON FOR CONSULTATION: Epidural abscess. HISTORY OF PRESENT ILLNESS: This is a 68-year-old healthy male whose only history is prior right hip replacement, who had mild left hip pain which precipitated evaluation in April, but over the last 1 month he has had progressive low back pain and left hip pain, which became so severe over the last 2 weeks that the patient was ambulating with crutches. He characterizes the pain as constant, 6/10 to 9/10 and no improvement with NSAIDs. Patient was evaluated by Dr. Mg and Dr. Ruiz previously. The patient presented to the emergency room due to inability to bear weight. The patient did have a cortisone injection in his hip last week that gave him no improvement. Initially, patient underwent an MRI of the left hip, which showed no evidence of infection or inflammatory arthropathy with slight bone marrow edema on the left sacral side of the SI joint, but no evidence of fluid, DJD of the lower lumbar spine. A non contrasted MRI of the spine was performed, which showed multilevel DJD, most significant at L4-L5 where there was left parasagittal extrusion of the L4 vertebral body with a facet arthropathy causing severe encroachment of the L4 nerve. He also was noted to have some central canal narrowing. The patient was taken to the OR initially for management of L4-L5 herniated nucleus polyposis, but subsequently was found to have a left L4-L5 epidural abscess which was evacuated and cultures were taken. Today, patient reports almost marked improvement of his pain today. Leading up to these problems, other than the pain described above, patient denies fevers, chills, night sweats, changes in weight. He had a slight decrease in appetite due to the pain over the last several weeks. He denies a specific injury. He last received antibiotics 1 year ago. He has not had any recent dental work. Last dental work was a root canal of #14 ten months ago. He has had some international travel over the last year, going to [place] for 10 days in September of 2017 for motorcycle tour, with minimal contact with local people. He did travel to [place] 2 months ago to move a friend's fishing boat. He does use a steam shower 2 times weekly and occasionally uses a hot tub. [place] there are some [place], but no horses are known to be sick. Contact with the horses was 2-3 weeks ago. No other livestock contact. No contact with birds. No family history or remote history of TB exposure. PAST MEDICAL HISTORY: Negative. PAST SURGICAL HISTORY: Right hip replacement. ALLERGIES: NKDA. ADDITIONAL SOCIAL HISTORY: Patient has a remote history of tobacco, age [age]. He drinks 4-5 beers weekly, uses daily marijuana. He is and his is a dentist. 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 He grew up in [place]. FAMILY HISTORY: His father had lymphoma and his mother had lung cancer. REVIEW OF SYSTEMS: A complete 10-point review of systems was performed and is negative except as mentioned in the HPI. Specifically, patient has no respiratory symptoms, no GI symptoms, no rash, no significant urinary symptoms. He has a slight decreased urinary stream, but no discomfort notable. No dental complaints. PHYSICAL EXAM: VITAL SIGNS: BP 143/96, heart rate 60, respiratory rate 17, sat 91% on room air, temperature 37.4. GENERAL: This is a well-appearing male, sitting up in bed, in no acute distress. HEENT: He has pterygium bilaterally. No conjunctival hemorrhages. Patient had some mild petechial eruption in the posterior pharynx. His dentition was okay. NECK: Supple. CARDIOVASCULAR: Borderline bradycardia. No murmurs. CHEST: Clear to auscultation bilaterally. ABDOMEN: Soft, nontender. EXTREMITIES: No clubbing, cyanosis, or edema. No peripheral stigmata of endocarditis. NEUROLOGICAL: Patient was alert and oriented x4. His motor was intact. No motor deficits were noted by me clinically. Back : small incision without redness or swelling over lumbar spine LABORATORY: White count 9.1, hematocrit 47, platelets 268, 60% neutrophils, 28 % lymphocytes. Creatinine 0.8, glucose 110. LFTs were normal. CRP was less than 5, ESR was 24. Blood cultures were not collected. Cultures from the OR are Gram stain negative. ASSESSMENT AND PLAN: 68-year-old male with minimal past medical history with progressive left leg and hip pain so severe he could not ambulate. Subsequently found to have an epidural abscess, which was evacuated in the OR with giving patient remarkable immediate relief of symptoms. Interestingly, patient with minimal symptoms of infection leading up to this diagnosis, suggesting bacteria such as Streptococcus or anaerobes. Also could consider mycobacteria with his regular steam room exposure and non-infectious etiologies - sarcoid or malignancy, although all of these etiologies would be somewhat unusual. No clear significant TB exposure. 1. Would obtain a baseline chest x-ray. 2. At this point, since patient has already received 3 doses of antibiotics, blood cultures are not helpful. In addition, patient w/o peripheral stigmata of endocarditis 3. Patient will need an MRI lumbar spine with contrast in the next 2-4 weeks to evaluate for bony and disk inflammation to help determine duration of antibiotic therapy. 4. We will try to optimize samples in the OR for isolation of organism. Hopefully, there will be enough sample to set up a mycobacterial culture. 5. Due to low likelihood of Methicillin-resistant Staphylococcus aureus, requiring vancomycin due to subacute presentation, a better course would be to treat with ceftriaxone 2 g IV q.12 for POOL PLAYER penetration for coverage of Propionibacterium acnes and Streptococcus. Time 75 min >50% time spent with education and counseling. I reviewed a course of therapy with the, patient PICC line placement and risks and benefits of antibiotic therapy and the patient expressed an understanding. ID will continue to see the patient on a daily basis. Tentatively plan for discharge tomorrow. Thank you for this consultation. /[id number]/MODL ROSA ISELA
--- NOTE | 2018-08-15 16:41 | HOSPPROG ---
Hospitalist Progress Note Assessment/Plan: Left hip pain (Acute)/Back pain- went to OR last night and was found to have an epidural abscess that was somehow missed on non contrast MRI. patient post op now from drainage and did not need discectomy. pain now resolved. -treat epidural abscess -pain control PRN -PT/OT Epidural abscess- found during L4/5 discectomy. not visible on review of MRI. case discussed with Dr. Marcano of ortho and with ID who has been consulted. patient will need 8 weeks IV abx. unfortunately no blood cultures obtained prior to abx. -ID consulted -vancomycin per pharmacy HLD- can continue statin while here. PPX- SCDs, heparin if no surgery Fluids- NS Lytes- WNL Nutrition- NPO at [place] [facility]- Full Dispo- observation for acute left hip pain Subjective: pain basically completely resolved. no fevers, chills, NV, or other symptoms. Objective: Vital Signs Temp Pulse Resp BP Pulse Ox 37.4 C 60 17 143/96 H 90 L 08/15/18 11:36 08/15/18 11:36 08/15/18 11:36 08/15/18 11:36 08/15/18 11:36 - Physical Exam Constitutional: no apparent distress, appears nourished, not in pain Eyes: PERRL, anicteric sclera, EOMI Ears, Nose, Mouth, Throat: moist mucous membranes, hearing normal, ears appear normal, no oral mucosal ulcers Cardiovascular: regular rate and rhythym, no murmur, rub, or gallop Respiratory: no respiratory distress, no rales or rhonchi, clear to auscultation Gastrointestinal: normoactive bowel sounds, soft, non-tender abdomen, no palpable masses Genitourinary: no bladder fullness, no bladder tenderness, no renal bruits Skin: no rashes or abrasions, no fluctuance, no induration Musculoskeletal: full muscle strength, no muscle tenderness, normal joint ROM Neurologic: AAOx3, sensation intact bilaterally Psychiatric: interacting appropriately, not anxious, not encephalopathic, thought process linear Lymph, Heme, Immunologic: no cervical LAD, no supraclavicular LAD ICD10 Worksheet Patient Problems: Problems Problem Status Onset Left hip pain Acute
[2018-08-15] MEDS: SENNOSIDES/DOCUSATE SODIUM TAB PO SCH (21:30)
[2018-08-15] MEDS: LORazepam 0.5 MG TAB PO PRN (21:30)
[2018-08-16] MEDS: SENNOSIDES/DOCUSATE SODIUM TAB PO SCH (06:49)
[2018-08-16 06:53] VITALS: BP 128/87
[2018-08-16] MEDS: ATORVASTATIN CALCIUM 20 MG TAB PO SCH (07:31)
--- NOTE | 2018-08-16 09:27 | PDIAF ---
- Diagnosis Diagnosis: L4-5 Epidural absces Code Status: Full Code - Medication Management [facility] Antibiotics: ceftriaxone 2gm IV q12h [facility] Antibiotic Stop Date: 09/25/18 Discharge Medications: electronically signed and located in the Home Medication List. PICC Care - Routine: Yes - Orders Services needed: Home Care, Registered Nurse Home Care Face to Face: I certify that this patient was under my care and that I had the required [id number] encounter meeting the encounter requirements on the discharge day. My findings support the fact that the patient is homebound as defined in Home Care Face to Face Continued: CMS Chapter 7 Medicare Benefits Manual 30.1.1 , The condition of the patient is such that there exists a normal inability to leave home and consequently, leaving home would require a considerable and taxing effort. - Labs/Radiology CBC w/diff Date: 08/24/18 (weekly friday) CMP Date: 08/24/18 (weekly friday) CRP Date: 08/24/18 (weekly friday) Call or Fax Lab and Imaging Results to: Andie Interiano MD [facility] at fax [phone] - Follow Up Care Current Providers and Referrals: Adalberto Brink MD [Primary Care Provider] - As per Instructions Andie Interiano MD [Medical Doctor] - 08/21/18 1:00 pm
--- NOTE | 2018-08-16 10:57 | PCMIDPN ---
Assessment/Plan: Subacute presentation of L4-5 Epidual abscess, unclear etiology --repeat MRI 2-3 weeks to eval for disc/bony involvement --dc today on ceftriaxone 2gm IV q12h, discussed w case management --f/u w me on Friday, appt in dc paperwork --reviewed risk benefits abx, risk of cdiff, planned w/u to evaluate for etiology w patient and his >35min spent with education and counseling --left message w path to try to assure sample evaluated by pathology med ceftriaxone 2gm IV q12h micro 08/14 standard cx from OR x 2: gram stain neg; cx NGTD 08/14 AFB: smear neg; cx pending Subjective: slight increase leg pain but stopped narcotics, still feels lots better no diarrhea appetite good wants to go home L lateral calf still numb Objective: Vital Signs Temp Pulse Resp BP Pulse Ox 36.6 C 64 18 128/87 H 93 08/16/18 06:52 08/16/18 06:52 08/16/18 06:52 08/16/18 06:52 08/16/18 06:52 08/15/18 08/16/18 08/17/18 05:59 05:59 05:59 Intake Total 400 Balance 400 ESR 24 MM/HR (0-20) H 08/13/18 05:51 C-Reactive Protein < 5.0 mg/L (<10.0) 08/13/18 05:51 - Physical Exam General Appearance: alert, no apparent distress Respiratory: lungs clear, No accessory muscle use Neck: supple Cardiac/Chest: regular rate, rhythm, No diastolic murmur, No systolic murmur Extremities: other (one lesion mid L foot sole, not clearly splinter hemorrage) , No pedal edema Skin: No rash Neuro/Psych: alert, normal mood/affect, oriented x 3, No motor weakness - Time Spent With Patient Time Spent with Patient: greater than 35 minutes Time Spent with Patient: Greater than 35 minutes spent on this patients care, greater than 50% of time spent counseling, educating, and coordinating care regarding the above mentioned plan. ICD10 Worksheet Patient Problems: Problems Problem Status Onset Left hip pain Acute
[2018-08-16] MEDS ORDERED: IBUPROFEN 200 MG TAB PO PRN (11:29)
--- NOTE | 2018-08-16 13:55 | GPROG ---
DATE OF SERVICE: 08/16/2018 I saw and evaluated the patient this afternoon on my afternoon rounds. Overall, he reports a pretty amazing turnaround with regard to his symptoms. He really has no pain going down the left leg as he did before the operation. PHYSICAL EXAMINATION: The dressing is clean, dry, intact and left in place. He still has some weakn ess about his left tibialis anterior, which I would grade 4/5. EHL is also 4/5. Gastrocsoleus is gr ossly 5/5. IMPRESSION: Postoperative day 2 status post epidural abscess debridement and irrigation. PLAN: The patient is going home today. He already has a PICC line placed. He will get some long-te rm antibiotics. He will follow up with me in 2 weeks time. Of note, he also see Dr. Josue Mg who is following him for his left hip arthritis. /[id number]/MODL
--- NOTE | 2018-08-17 14:20 | ASDISCHSUM ---
Discharge Information Plan Status:IV ABX/Infusion Medically Cleared to Leave:08/15/2018 Discharge Date:08/15/2018 CM D/C Disposition:Home Health Service ADT D/C Disposition: Projected Discharge Date:08/16/2018 03:00 PM Transportation at D/C:Family Discharge Delay Reason: Follow-Up Date:08/16/2018 03:00 PM Discharge Slot:2 - 12:01 pm - 18:00 pm Final Diagnosis:L hip pain -infection Placement Information Referral Type:Home Infusion Referral ID:[id number] Provider Name:[facility] Address 1:[address] Address 2: City:[place] Selection Factors: State:[place] Referral Type:*Home Health Care Services Referral ID:[id number] Provider Name:[facility] [address] Address 2: City:[place] Selection Factors: State:[place] Patient Contact Information Contact Name:RON Relationship: Address:[address] City:[place] Alternate Phone: State/Zip Code:[place] [address] Email: Financial Information Financial Class:Medicare Primary Plan Desc:MEDICARE OUTPATIENT Primary Plan Number:[id number] Secondary Plan Desc:ALEXUSAHA Secondary Plan Number:[id number] Assessment Information LACE LACE Length of stay for Answers: 1 day current admission Comorbidities - select Answers: Other Notes: HLD all that apply # of Emergency department Answers: 1-2 visits in the last 6 months Score: 3 Date Signed: 08/16/2018 12:57 PM Electronically Signed By:Cassia Virgen LCSW [facility] CM Progress Note CM Note CM Note Notes: Pt is a 68 yo M presented with herniated nucleus pulposis. Pt lives with his and is supportive. Pt has no previous admissions. Pt is scheduled for surgery tomorrow. CM to follow. Plan: TBD Date Signed: 08/14/2018 04:06 PM Electronically Signed By:MARCIA Fournier BC CM Progress Note CM Note CM Note Notes: Patient to discharge today at 3:00 after his infusion. Mindy contacted and [facility] for RN. Date Signed: 08/16/2018 12:53 PM Electronically Signed By:Cassia Virgen LCSW Case Management Discharge Plan Note Case Management Discharge Discharge Order Complete? Answers: Yes Patient to Obtain Answers: via [facility] Transportation Arranged Answers: Family/Friends Transport will Pick (Date 08/16/2018 04:00 PM & Time) Faxed Final Orders Answers: Yes Notes: [facility] Family Notified Answers: Yes Notes: to transport Discharge Comments Notes: Patient has beed discharged hm with [facility] and [facility]. Date Signed: 08/16/2018 12:55 PM Electronically Signed By:Cassia Virgen LCSW Intervention Information Intervention Type:*MANCIA-Signed Date of Service:08/13/2018 11:46 AM Patient Type:Observation Staff Member:Shelby Garcia Hours: Discipline: Severity: Comment:
--- NOTE | 2018-08-17 14:20 | ASMTDCNOTE ---
Case Management Discharge Discharge Order Complete? Answers: Yes Patient to Obtain Answers: via Family Medications Transportation Arranged Answers: Family/Friends Transport will Pick (Date 08/16/2018 04:00 PM & Time) Faxed Final Orders Answers: Yes Notes: [facility] and [facility] Family Notified Answers: Yes Notes: to transport Discharge Comments Notes: Patient has beed discharged hm with [facility] and [facility]. Date Signed: 08/16/2018 12:55 PM Electronically Signed By:Cassia Virgen LCSW
--- NOTE | 2018-08-17 14:20 | ASMTCMCOM ---
CM Note CM Note Notes: Patient to discharge today at 3:00 after his infusion. Mindy contacted and [facility] for RN. Date Signed: 08/16/2018 12:53 PM Electronically Signed By:Cassia Virgen LCSW
--- NOTE | 2018-08-18 07:25 | GDS ---
The patient underwent a lumbar spine procedure on 08/16/2018, with the presumption of a herniated dis k and footdrop. Intraoperatively, this was noted to be an epidural abscess, which was irrigated and debrided appropriately. The patient spent 2 days in the hospital, progressed well, was given a PICC line, and ID was seen by the patient, who had recommended long-term administration of antibiotics. T he patient's symptoms were markedly improved; however, he still had some residual weakness in that le ft foot with tibialis anterior being 4/5. Moving forward, the patient is to see me in 2 weeks' time for an incision check. He is also going to see Infectious Disease for antibiotic maintenance. If th e patient has any further questions, he has my cell phone for further information. /[id number]/MODL
== END 2018-08-16 14:17 | disposition home health service (06) | DRG 30 ==
LOC: F3N 08:19 → OBSVTOIN 08-15 11:44
PROVIDERS: ADMIT Family Medicine; ATTEND Family Medicine
PROC: 009U0ZZ Drainage of Spinal Canal, Open Approach (ICD-10-PCS; principal; 2018-08-14 16:30)
PROC: 02HV33Z Insertion of Infusion Device into Superior Vena Cava, Percutaneous Approach (ICD-10-PCS; 2018-08-15)
DX: G06.1 Intraspinal abscess and granuloma (principal); M16.12 Unilateral primary osteoarthritis, left hip; Z96.641 Presence of right artificial hip joint; E78.5 Hyperlipidemia, unspecified; Z87.891 Personal history of nicotine dependence
CPT/HCPCS: 96374; 97165-GO; A9585; C1751; G0378; G8987-GO-CI; G8988-GO-CI; G8989-GO-CI; J0690; J0696; J1170; J2250; J2270; J2405; J2704; J2765; J3010; J3370

== ENCOUNTER → 2018-08-28 | Outpatient (CLI) | payer OTHER ==
[~2018-08-28] MED LIST: IOPAMIDOL (ISOVUE-300) 100 ML BTL ONE
== END ==
LOC: FIMAGING 09:03
PROVIDERS: ATTEND Internal Medicine Infectious Disease
DX: G06.2 Extradural and subdural abscess, unspecified (principal); R10.32 Left lower quadrant pain; K57.30 Diverticulosis of large intestine without perforation or abscess without bleeding; R16.0 Hepatomegaly, not elsewhere classified
CPT/HCPCS: 74177; Q9967

== ENCOUNTER → 2018-09-04 | Outpatient (CLI) | payer OTHER ==
[~2018-09-04] MED LIST changes: +GADOBUTROL 10 ML VIAL IVP ONE; -IOPAMIDOL (ISOVUE-300) 100 ML BTL ONE
== END ==
LOC: FIMAGING 07:29
PROVIDERS: ATTEND Internal Medicine Infectious Disease
DX: G06.2 Extradural and subdural abscess, unspecified (principal); R10.32 Left lower quadrant pain; R16.0 Hepatomegaly, not elsewhere classified
CPT/HCPCS: 72158; 74183; A9585

== ENCOUNTER → 2018-09-30 | Outpatient (CLI) | payer OTHER ==
[~2018-09-30] MED LIST changes: -GADOBUTROL 10 ML VIAL IVP ONE; +GADOXETATE DISODIUM 2.5 MMOL/10 ML VIAL IV ONE
== END ==
LOC: FIMAGING 07:50
PROVIDERS: ATTEND Internal Medicine Infectious Disease
DX: M54.42 Lumbago with sciatica, left side (principal); R16.0 Hepatomegaly, not elsewhere classified
CPT/HCPCS: 72110; 74183; A9581